=== PATIENT | female | born 1970 | race Caucasian/White ===

== ENCOUNTER 2017-01-04 13:38 | Emergency (ER) | payer MEDICAID, OTHER ==
[2017-01-04 14:05] VITALS: BP 125/74
[2017-01-04] MEDS ORDERED: Albuterol 2.5 MG/3 ML NEB.SOL* (0.083%) INH ONE (14:15)
[2017-01-04] MEDS ORDERED: predniSONE TAB* 20 MG PO ONE (14:16)
[2017-01-04] MEDS ORDERED: Ipratropium 0.5MG/2.5ML NEB* 0.5 MG/2.5 ML NEB.SOLN INH ONE (14:16)
--- NOTE | 2017-01-04 15:28 | UC ---
Respiratory Complaint HPI - HPI Summary HPI Summary: pt c/o exacerbation of asthma. Pt is talking in full sentences and without respiratory distress - History of Current Complaint Chief Complaint: UCAsthma Stated Complaint: SOB-CHRONIC BRONCHITIS Time Seen by Provider: 01/04/17 14:15 Hx Obtained From: Patient Hx Last Menstrual Period: 01/04/17 ?: No Onset/Duration: Gradual Onset, Lasting Days Timing: Constant Severity Initially: Mild Severity Currently: Mild Pain Intensity: 0 Pain Scale Used: 0-10 Numeric Character: Cough: Nonproductive Aggravating Factors: Exertion Alleviating Factors: Nothing - Allergies/Home Medications Allergies/Adverse Reactions: Allergies Allergy/AdvReac Type Severity Reaction Status Date / Time No Known Allergies Allergy Verified 01/04/17 14:05 Home Medications: Home Medications Albuterol HFA INHALER* [Ventolin HFA Inhaler*] 2 puff INH Q4H PRN 01/04/17 [ History Confirmed 01/04/17] PMH/Surg Hx/FS Hx/Imm Hx Previously Healthy: Yes Respiratory History Of: Reports: Asthma - chronic bronchitis - Surgical History Surgical History: Yes Surgery Procedure, Year, and Place: c section. gall bladder - Family History Known Family History: Positive: Cardiac Disease - Social History Occupation: Employed Full-time Lives: With Family Alcohol Use: Weekly Substance Use Type: Marijuana Smoking Status (MU): Heavy Every Day Tobacco Smoker Amount Used/How Often: 1 ppd Length of Time of Smoking/Using Tobacco: started age 13 Review of Systems Constitutional: Negative Skin: Negative Eyes: Negative ENT: Negative Respiratory: Shortness Of Breath, Cough Cardiovascular: Negative Gastrointestinal: Negative Genitourinary: Negative Motor: Negative Neurovascular: Negative Musculoskeletal: Negative Neurological: Negative Psychological: Negative All Other Systems Reviewed And Are Negative: Yes Physical Exam Triage Information Reviewed: Yes Appearance: Well-Appearing, Other: - pt appears slightly anxious Vital Signs: Initial Vital Signs Temp 98.0 F 01/04/17 14:00 Pulse 72 01/04/17 14:00 Resp 28 01/04/17 14:00 BP 125/74 01/04/17 14:00 Pulse Ox 99 01/04/17 14:00 Vital Signs Reviewed: Yes ENT Exam: Normal Neck exam: Normal Respiratory Exam: Normal Cardiovascular Exam: Normal Musculoskeletal Exam: Normal Neurological Exam: Normal Psychological Exam: Normal Skin Exam: Normal UC Diagnostic Evaluation - Laboratory O2 Sat by Pulse Oximetry: 99 Respiratory Course/Dx - Differential Dx/Diagnosis Differential Diagnosis/HQI/PQRI: Asthma, Exacerbation Of COPD Provider Diagnoses: exacerbation of asthma Discharge - Discharge Plan Condition: Stable Disposition: HOME Prescriptions: Albuterol 2.5MG/3ML (0.083%)* [Ventolin 2.5 MG/3 ML NEB.MARYBETH*] 2.5 mg INH Q4H PRN #1 box PRN Reason: Sob/Wheezing Budesonide/Formote 160/4.5(NF) [Symbicort 160/4.5 (NF)] 2 puff INH BID PRN #1 mdi PRN Reason: Sob/Wheezing Patient Education Materials: Asthma (ED) Forms: *Work Release Referrals: [facility] [place] [facility] REFERR[facility] [Outside]
== END 2017-01-04 15:18 | disposition home or self-care (01) ==
LOC: UCCORT 13:38
DX: J45.901 Unspecified asthma with (acute) exacerbation (principal); F17.210 Nicotine dependence, cigarettes, uncomplicated
CPT/HCPCS: 99202; G0463; J7512; J7644